=== PATIENT | male | born 1950 | race Caucasian/White ===

== ENCOUNTER 2020-07-03 09:08 | Outpatient (CLI) | payer MEDICARE | END 2020-07-03 09:09 | disposition home or self-care (01) | LOC: CSHRAD 09:08 | PROVIDERS: ATTEND Internal Medicine | DX: R05 Cough (principal); Z87.891 Personal history of nicotine dependence | CPT/HCPCS: 71046 ==

== ENCOUNTER 2021-02-04 10:02 | Outpatient (CLI) | payer MEDICARE ==
[2021-02-04 17:37] LABS: SARS-CoV-2 PCR by NAA Not Detected (NotDetected)
== END 2021-02-04 10:03 | disposition home or self-care (01) ==
LOC: CSHLAB 10:02
PROVIDERS: ATTEND Internal Medicine
DX: Z01.812 Encounter for preprocedural laboratory examination (principal); Z20.822 Contact with and (suspected) exposure to COVID-19; R05.3 Chronic cough
CPT/HCPCS: U0003; U0005

== ENCOUNTER 2021-02-07 07:33 | Outpatient (CLI) | payer MEDICARE | END 2021-02-07 07:34 | disposition home or self-care (01) | LOC: CSHCP 07:33 | PROVIDERS: ATTEND Internal Medicine | DX: R05.3 Chronic cough (principal); F17.210 Nicotine dependence, cigarettes, uncomplicated | CPT/HCPCS: 94060; 94726; 94729; 94760 ==

== ENCOUNTER 2024-02-24 12:47 | Outpatient (CLI) | payer MEDICARE ==
[~2024-02-24 12:47] MED LIST: Iopamidol 370 76% 100 ML VIAL ONE
== END 2024-02-24 12:48 | disposition home or self-care (01) ==
LOC: CSHCT 12:47
PROVIDERS: ATTEND Internal Medicine
DX: I70.90 Unspecified atherosclerosis (principal); Z82.49 Family history of ischemic heart disease and other diseases of the circulatory system
CPT/HCPCS: 70496; Q9967